=== PATIENT | female | born 1960 | race Caucasian/White ===

== ENCOUNTER 2018-09-25 20:37 | Emergency (ER) | payer MEDICAID, OTHER ==
[~2018-09-25] VITALS: Ht 157.5 cm; Wt 80.8 kg
[2018-09-25 20:41] VITALS: BP 120/81; PULSE 81; RESP 20; Ht 157.5 cm; Wt 80.8 kg
--- NOTE | 2018-09-25 21:22 | ERD ---
ER Documentation Chief Complaint Chief Complaint left eye pain/injury; left knee pain s/p fall in shower; no LOC HPI This is a 58-year-old female who presents emergency department with complaints of left eye laceration, neck pain, nasal swelling, knee pain after falling an hour prior to arrival here in emergency department. Stated that she was in the bathroom, slipped, fell, landed on her face first, hyperflexing her neck, landed on her knee. Stated that she had loss of consciousness for a few seconds. LMP: Denies headache, changes in vision, loss of consciousness, dizziness, neck pain, neck stiffness, throat pain, difficulty swallowing, difficulty breathing lying flat, shoulder pain, chest pain, back pain, abdominal pain, nausea, vomiting, constipation, diarrhea, urinary symptoms, or possibility being , loss of bowel and bladder control, trauma, injury, falls, difficulty walking due to pain, numbness or tingling sensation, calf pain, recent travel, recent major surgery in the last 3 weeks, calf pain, recent long travel, recent exposure to any illness, recent antibiotic use in the last 3 months, fever, chills, seizures. Past medical history: Surgical history: Social: Denies smoking, use of alcoholic beverages, use of illegal drugs. ROS All systems reviewed and are negative except as per history of present illness. Medications Home Meds Active Scripts Omeprazole* (Omeprazole*) 40 Mg Capsule.dr, 40 MG PO DAILY, #30 CAP Prov:PASILABAN,KLAR F 09/25/18 Ibuprofen* (Motrin*) 800 Mg Tab, 800 MG PO Q8 PRN for PAIN AND OR ELEVATED TEMP, #20 TAB Prov:PASILABAN,KLAR F 09/25/18 Allergies Allergies: Coded Allergies: No Known Allergy (Unverified , 09/25/18) PMhx/Soc Medical and Surgical Hx: pt denies Medical Hx, pt denies Surgical Hx History of Surgery: No Hx Neurological Disorder: No Hx Respiratory Disorders: No Hx Cardiac Disorders: No Hx Psychiatric Problems: No Hx Miscellaneous Medical Probl: No Hx Alcohol Use: No Hx Substance Use: No Hx Tobacco Use: No Smoking Status: Never smoker Physical Exam Vitals Vital Signs Date Temp Pulse Resp B/P (MAP) Pulse Ox O2 O2 Flow FiO2 Time Delivery Rate 09/25/18 98.6 81 20 120/81 100 20:41 (94) Physical Exam Const: No acute distress Head: Atraumatic Eyes: Normal Conjunctiva. Left eye: Left upper eyelid has a laceration measuring approximately 2 cm in length. Extraocular movement of her eyes are within normal limits. No conjunctival injection. No bleeding. No discharge. No pain in eye movement. No visual field loss. Right eye: No conjunctival injection. Extraocular movement of his eye is within normal limits. No pain in eye movement. There is no periorbital swelling/deformity/depression bilaterally. ENT: Normal External Ears, Nose and Mouth. Bilateral ears: No ear laceration. No bleeding. No discharge. No clear discharge with no mastoid tenderness. No hearing loss. Nose: Midline but with swelling. No deviation. No septal hematoma. No bleeding. No discharge. Throat/lips: No lip laceration. No signs of tooth avulsions. No tongue laceration. Uvula is in midline and nondisplaced. Tonsils are +1 bilateral without redness without exudates. Tolerating secretions. Patent airway. Speaks full and clear sentences. Bilateral jaw: No tenderness. No swelling. No deformity. Neck: Full range of motion. No meningismus. C-spine: is in midline with good and full range of motion and is no swelling/deformity/bulging/point of tenderness. Has pain to range of motion. Resp: Clear to auscultation bilaterally. Cardio: Regular rate and rhythm, no murmurs Abd: Soft, non tender, non distended. Normal bowel sounds Skin: No petechiae or rashes Back: No midline or flank tenderness. T-spine/L-spine are midline with good and full range of motion and is no swelling/deformity/bulging/point of tenderness. Bilateral hips are stable and unremarkable. Ext: No cyanosis, or edema. Left knee: Bruising. Has good and full range of motion. No swelling. No deformity. Right knee: Unremarkable. Neur: Awake and alert. Equal hand buffing wheel former. Equal strength in bilateral upper and lower extremities. Romberg test negative. No neurological deficits. Psych: Normal Mood and Affect Results 24 hrs Current Medications Medications Dose Sig/Fela Start Time Status Last (Trade) Ordered Route PRN Stop Time Admin Dose Reason Admin Diphtheria/ 0.5 ml ONCE ONCE 09/25/18 DC 09/25/18 Tetanus/Acell IM* 21:30 21:34 Pertussis 09/25/18 21:31 (Adacel) 1 tab ONCE ONCE 09/25/18 DC 09/25/18 Acetaminophen PO 21:30 21:34 / 09/25/18 21:31 Hydrocodone Bitart (Flint (5/325)) Lidocaine 20 ml ONCE ONCE 09/25/18 DC (Xylocaine SC 22:00 1% (Mdv) 20 09/25/18 22:01 ml) Bacitracin 1 applic ONCE ONCE 09/25/18 DC 09/25/18 (Bacitracin TOP 23:00 23:14 Oint (Ud)) 09/25/18 23:01 Procedures/MDM Diagnostic tests: CT of the brain: No acute intracranial hemorrhage or extra-axial fluid collection. Minimal generalized cerebral volume loss. CT of the facial bones: No acute fracture. The bilateral globes are intact without orbital hematoma. CT of the C-spine: No acute fracture or subluxation. X-ray of the left knee: No acute fracture identified in the left knee. Mild degenerative changes. Treatment: Adacel IM. Flint p.o. Procedure: Laceration repair to left upper eyelid. I explained to the patient that I am not a plastic surgeon and that scarring will be visible after the repair. She verbalized understanding and agreed for me to do the repair. Secured verbal consent from the patient and family member to do the laceration repair. Betadine prep. Lidocaine 1% 1 cc subcu. Copious/pressure irrigation with saline and Betadine. Wound was explored. No foreign bodies found. Ethilon 5-0 x5 simple interrupted sutures. Re-evaluation: There is no visual field loss. Extraocular movement of her eyes are within normal limits. There is no pain in eye movement. Romberg test is n egative. No neurological deficits. Differential diagnosis I have low suspicion for epidural hematoma, subdural hematoma, intracranial hemorrhage, skull fracture, LeFort, septal hematoma, C-spine fracture/subluxation. Final diagnosis: Concussion. Eyelid laceration secondary to head injury. Prescription: Motrin. Follow-up with PCP in the next 24-48 hours. Come back in 2 days for wound check. Come back in 5 to 7 days for suture removal. Come back here in the emergency department for any new symptoms or any worsening symptoms. All questions and concerns were answered. Patient and family members verbalized understanding and agreed with plan of care. Hemodynamically stable on discharge. Departure Diagnosis: Primary Impression: Acute head injury Additional Impression: Laceration, eyelid, left Condition: Stable Additional Instructions: Follow-up with PCP in the next 24-48 hours. Come back in 2 days for wound check. Come back in 5 to 7 days for suture removal. Come back here in the emergency department for any new symptoms or any worsening symptoms. ANDRAE MILTON September 25, 2018 21:22
[2018-09-25] MEDS ORDERED: HYDROCODONE/APAP (5/325) TAB PO ONE (21:30)
[2018-09-25] MEDS ORDERED: DIPHTH/TET/ACEL PERTUSS (ADULT) 0.5 ML VIAL IM* ONE (21:30)
[2018-09-25] MEDS ORDERED: LIDOCAINE 1% (MDV) 20 ML INJ SC ONE (22:00)
[2018-09-25] MEDS ORDERED: OMEP40CA6 PO (22:58)
[2018-09-25] MEDS ORDERED: IBUP800T48 PO (22:58)
[2018-09-25] MEDS ORDERED: BACITRACIN 0.9 GM OINT TOP ONE (23:00)
== END 2018-09-25 23:15 | disposition home or self-care (01) ==
LOC: FTE 20:37
DX: S01.112A Laceration without foreign body of left eyelid and periocular area, initial encounter (principal); S06.0X0A Concussion without loss of consciousness, initial encounter; W01.0XXA Fall on same level from slipping, tripping and stumbling without subsequent striking against object, initial encounter; Y92.002 Bathroom of unspecified non-institutional (private) residence as the place of occurrence of the external cause; Z23 Encounter for immunization
CPT/HCPCS: 12011; 70450; 70486; 72125; 73562; 90471; 90715; Z7502; Z7610

== ENCOUNTER 2018-10-09 19:59 | Emergency (ER) | payer MEDICAID ==
[~2018-10-09] VITALS: Wt 80.7 kg
[~2018-10-09 19:59] MED LIST: IBUP800T48 PO; OMEP40CA6 PO
[2018-10-09 20:25] VITALS: BP 132/78; PULSE 72; RESP 18
[2018-10-09] MEDS ORDERED: CARB-155 RIGHT EAR (22:36)
--- NOTE | 2018-10-10 01:41 | ERD ---
ER Documentation Chief Complaint Chief Complaint suture removal left eyelid HPI 58-year-old female presenting for suture removal to her left eye. She reports that the sutures were put in on September 25 and denies any complications from the sutures or signs of infection. Patient states that she received antibiotics previously and she has finished a course. She states she is doing well and is just here for suture removal. Patient also is reporting hearing loss in her right ear. She was told to come to the ER to have her ears checked and cleaned out. She reports previous history of similar instances in which ear wax was cleaned out of her ears and her hearing would resume. ROS All systems reviewed and are negative except as per history of present illness. Medications Home Meds Active Scripts Carbamide Peroxide* (Debrox*) 6.5% -15 Ml Drops, 10 DROP RIGHT EAR BID for 5 Days, EA Prov:JUAN CARLOS LOUISE PA-C 10/09/18 Omeprazole* (Omeprazole*) 40 Mg Capsule.dr, 40 MG PO DAILY, #30 CAP Prov:PASILABAN,CELESTINEAR F 09/25/18 Ibuprofen* (Motrin*) 800 Mg Tab, 800 MG PO Q8 PRN for PAIN AND OR ELEVATED TEMP, #20 TAB Prov:PASILABAN,KLAR F 09/25/18 Allergies Allergies: Coded Allergies: No Known Allergy (Unverified , 09/25/18) PMhx/Soc Medical and Surgical Hx: pt denies Medical Hx History of Surgery: No Hx Neurological Disorder: No Hx Respiratory Disorders: No Hx Cardiac Disorders: No Hx Psychiatric Problems: No Hx Miscellaneous Medical Probl: No Hx Alcohol Use: No Hx Substance Use: No Hx Tobacco Use: No FmHx Family History: No diabetes, No coronary disease, No other Physical Exam Vitals Vital Signs Date Temp Pulse Resp B/P (MAP) Pulse Ox O2 O2 Flow FiO2 Time Delivery Rate 10/09/18 97.9 72 18 132/78 100 20:25 (96) Physical Exam Const: No acute distress Head: Sutures placed left eyelid on face Eyes: PERRLA ENT: Normal External Ears, Nose and Mouth. Right ear: unable to visualize TM due to severe cerumen impaction Skin: No petechiae or rashes, non-erythematous, nonbleeding, noninflamed healing wound left eyelid Neur: Awake and alert Psych: Normal Mood and Affect Procedures/MDM ED COURSE: The patient was stable throughout ED course. I kept the patient was informed of laboratory and diagnostic imaging results throughout the ED course. PROCEDURES: Suture Removal by me: Juan Carlos Louise Sutures removed with tweezers and scissors without incident. Wound shows no evidence of infection, foreign body, neurologic injury, vascular injury, open joint or tendon laceration. Patient to follow up PRN. MEDICATIONS GIVEN: [None.] MEDICAL DECISION MAKING: Patient is a 58-year-old female presenting for suture removal. She is denies any fevers or other signs of systematic infection. She recently finished her course of antibiotics and has no new complaints besides acute hearing loss in her right ear. She reports previous episodes of this in the past where she has come and gone her ears cleaned and hearing has been resumed. Her ears were cleaned and hearing was improved during the ER course. The wound is clean, dry and intact with no evidence of infection. Patient has good wound closure and good wound approximation. There is no surrounding erythema, warmth, tenderness or lymphatic streaking. Low suspicion for deep space infection, compartment syndrome, or cellulitis. No evidence of neurologic, vascular or tendon injury. Vital signs were reviewed. Patient is afebrile. Patient was not hypoxic. Patient was hemodynamically stable. PRESCRIPTION: Debrox DISCHARGE: At this time, patient is stable for discharge and outpatient management. I have instructed the patient to follow-up with his/her primary care physician in 1-2 days. I have discussed with the patient the possibility of needing to see a specialist for further workup and imaging studies if symptoms persist. I have instructed the patient to promptly return to the ER for any new or worsening symptoms including increased pain, fever, nausea, vomiting, weakness or LOC. The patient and/or family expressed understanding of and agreement with this plan. All questions were answered. Home care instructions were provided. Disclaimer: Inadvertent spelling and grammatical errors are likely due to EHR/dictation software use and do not reflect on the overall quality of patient care. Also, please note that the electronic time recorded on this note does not necessarily reflect the actual time of the patient encounter. Departure Diagnosis: Primary Impression: Visit for suture removal Additional Impression: Cerumen impaction Laterality: right Qualified Codes: H61.21 - Impacted cerumen, right ear Condition: Stable Patient Instructions: Suture Removal, No Complication Referrals: [facility] YOU HAVE RECEIVED A MEDICAL SCREENING EXAM AND THE RESULTS INDICATE THAT YOU DO NOT HAVE A CONDITION THAT REQUIRES URGENT TREATMENT IN THE EMERGENCY DEPARTMENT. FURTHER EVALUATION AND TREATMENT OF YOUR CONDITION CAN WAIT UNTIL YOU ARE SEEN IN YOUR DOCTORS OFFICE WITHIN THE NEXT 1-2 DAYS. IT IS YOUR RESPONSIBILITY TO MAKE AN APPOINTMENT FOR FOLOW-UP CARE. IF YOU HAVE A PRIMARY DOCTOR --you should call your primary doctor and schedule an appointment IF YOU DO NOT HAVE A PRIMARY DOCTOR YOU CAN CALL OUR PHYSICIAN REFERRAL HOTLINE AT IF YOU CAN NOT AFFORD TO SEE A PHYSICIAN YOU CAN CHOSE FROM THE FOLLOWING [facility] [address] [facility]. [facility] [address] [email or web address]. [facility] [address] [facility] [facility] [address] [facility]. [facility] [address] [facility]. [facility] [address] [facility]. [facility] YOU HAVE RECEIVED A MEDICAL SCREENING EXAM AND THE RESULTS INDICATE THAT YOU DO NOT HAVE A CONDITION THAT REQUIRES URGENT TREATMENT IN THE EMERGENCY DEPARTMENT. FURTHER EVALUATION AND TREATMENT OF YOUR CONDITION CAN WAIT UNTIL YOU ARE SEEN IN YOUR DOCTORS OFFICE WITHIN THE NEXT 1-2 DAYS. IT IS YOUR RESPONSIBILITY TO M TORSTEN AN APPOINTMENT FOR FOLOW-UP CARE. IF YOU HAVE A PRIMARY DOCTOR --you should call your primary doctor and schedule and appointment IF YOU DO NOT HAVE A PRIMARY DOCTOR YOU CAN CALL OUR PHYSICIAN REFERRAL HOTLINE AT . IF YOU CAN NOT AFFORD TO SEE A PHYSICIAN YOU CAN CHOSE FROM THE FOLLOWING [facility]: [facility] [address] [place] [address] [facility] [address] [place] [address] [facility] [address] [place] [address] Additional Instructions: Call your primary care doctor TOMORROW for an appointment during the next 1-2 days.See the doctor sooner or return here if your condition worsens before your appointment time. JUAN CARLOS LOUISE PA-C 7, 2019 01:41
== END 2018-10-09 23:25 | disposition home or self-care (01) ==
LOC: FTE 19:59
DX: H61.21 Impacted cerumen, right ear (principal)
CPT/HCPCS: 99283